=== PATIENT | female | born 1945 | race Caucasian/White ===

== ENCOUNTER 2017-01-27 14:07 | Emergency (ER) | payer OTHER ==
[~2017-01-27] VITALS: Ht 157.5 cm; Wt 85.0 kg
[~2017-01-27 14:07] MED LIST: ASPI81TA28 PO; ATV5X PO; FURO-85 PO; INSUINJ4 SC; ISOS30TA35 PO; LPT40 PO; METO100T14 PO; NLV/20 PO; NRN600 PO; NTRGSL/4 UT; NVLGI/PEN INJ; RANI150T3 PO; SERT-234 PO; TRAM-10 PO; TRAZ50TA35 PO
[2017-01-27 14:31] VITALS: TEMP 36.8; Ht 157.5 cm; Wt 85.0 kg
[2017-01-27] MEDS ORDERED: ACET-1256 PO (14:40)
[2017-01-27] MEDS ORDERED: HYDROCODONE/ACETAMOPHEN 5/325MG TAB PO ONE (15:00)
--- NOTE | 2017-01-27 15:30 | DIAGNOSTIC IMAGING REPORT ---
LEFT FOOT 3 VIEWS CLINICAL HISTORY: Left foot pain. FINDINGS: 3 views of the left foot are obtained. No prior studies are available for comparison at the time of dictation. The skeletal structures are osteopenic. No acute fracture is seen. Mild arthritic change is present at the first metatarsophalangeal joint. A large enthesophyte is present at the base of the fifth metatarsal. There are large dorsal and plantar heel spurs. An os naviculari is incidentally noted. Mild soft tissue swelling is seen in the forefoot. IMPRESSION: 1. Soft tissue swelling is noted in the forefoot. No fracture is seen. 2. Osteopenia, arthritic change, and heel spurs as above. Electronically signed by: Vincent Marti M.D. 01/27/2017 3:29 PM Dictated Date/Time: 01/27/2017 3:27 PM
--- NOTE | 2017-01-27 15:31 | DIAGNOSTIC IMAGING REPORT ---
RIGHT FOOT MIN 3 VIEWS ROUTINE, RIGHT ANKLE MIN 3 VIEWS ROUTINE HISTORY:72 yearsFemaleR foot pain Right COMPARISON: None available TECHNIQUE: 3 views of the right foot and 3 views of the right ankle. FINDINGS: FOOT: The bones are moderately demineralized. Degenerative changes are seen throughout the interphalangeal joints. Subtle cortical irregularity involving the lateral aspect of the metaphyseal fourth metatarsal seen best on the oblique projection with associated soft tissue swelling suggesting acute fracture. No additional acute fracture or dislocation is identified. There is prominent spurring about the calcaneus at the plantar insertion site. ANKLE: Ankle mortise is well maintained. Talar dome is smooth without osteochondral defect. Bones are moderately demineralized. There is mild spurring of the tibiotalar joint with prominent spurring about the calcaneus. There is a small ankle joint effusion with mild ankle soft tissue swelling. No acute fracture or dislocation is definitively seen. IMPRESSION: 1. Suggested subtle acute nondisplaced fracture of the distal metaphyseal fourth metatarsal with adjacent soft tissue swelling. 2. Small ankle joint effusion and soft tissue swelling without ankle fracture or dislocation. 3. Degenerative changes about the foot and ankle as above. The above report was generated using voice recognition software. It may contain grammatical, syntax or spelling errors. Electronically signed by: Keith Del Rosario 01/27/2017 3:30 PM Dictated Date/Time: 01/27/2017 3:25 PM
--- NOTE | 2017-01-27 15:32 | DIAGNOSTIC IMAGING REPORT ---
LEFT ANKLE 3 VIEWS CLINICAL HISTORY: Left ankle pain. FINDINGS: 3 views of the left ankle are obtained. No prior studies are available for comparison at the time of dictation. The skeletal structures are osteopenic. No fracture is seen. The ankle mortise is intact. There is no joint effusion. Large dorsal and plantar calcaneal enthesophytes are noted. Soft tissue swelling is suggested around the ankle. Calcification is seen along the course of the plantar fascia. IMPRESSION: Soft tissue swelling with no radiographic evidence of left ankle fracture. Electronically signed by: Vincent Marti M.D. 01/27/2017 3:31 PM Dictated Date/Time: 01/27/2017 3:29 PM
--- NOTE | 2017-01-27 15:52 | EMERGENCY ROOM VISIT NOTE ---
ED Visit Note First contact with patient: 14:33 I have personally seen and evaluated the patient with the physician family service assistant. I agree with the diagnostic/management decisions and have personally been involved in these decisions and agree with the diagnosis.
[2017-01-27] MEDS ORDERED: HYDR-5688 PO (15:58)
[2017-01-27 16:17] VITALS: BP 151/100; PULSE 86; O2SAT 99
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
== END 2017-01-27 16:18 | disposition home or self-care (01) ==
LOC: C.EDB 14:09 → C.EDD 16:18
DX: M25.571 Pain in right ankle and joints of right foot (principal); M25.572 Pain in left ankle and joints of left foot; I12.9 Hypertensive chronic kidney disease with stage 1 through stage 4 chronic kidney disease, or unspecified chronic kidney disease; N18.3 Chronic kidney disease, stage 3 (moderate); E11.9 Type 2 diabetes mellitus without complications; E78.5 Hyperlipidemia, unspecified; I25.10 Atherosclerotic heart disease of native coronary artery without angina pectoris; I25.2 Old myocardial infarction; F32.9 Major depressive disorder, single episode, unspecified; K56.60 Unspecified intestinal obstruction; K21.9 Gastro-esophageal reflux disease without esophagitis; M19.90 Unspecified osteoarthritis, unspecified site; Z85.3 Personal history of malignant neoplasm of breast; Z90.10 Acquired absence of unspecified breast and nipple; Z87.442 Personal history of urinary calculi; Z90.710 Acquired absence of both cervix and uterus; Z98.51 Tubal ligation status; Z90.722 Acquired absence of ovaries, bilateral; Z90.49 Acquired absence of other specified parts of digestive tract; Z96.651 Presence of right artificial knee joint; Z98.890 Other specified postprocedural states; Z79.4 Long term (current) use of insulin; Z79.82 Long term (current) use of aspirin; Z79.899 Other long term (current) drug therapy; Z88.2 Allergy status to sulfonamides; Z88.8 Allergy status to other drugs, medicaments and biological substances